=== PATIENT | female | born 2000 | race Caucasian/White ===

== ENCOUNTER 2023-01-28 01:13 | Emergency (ER) | payer OTHER ==
[~2023-01-28] VITALS: Ht 175.2 cm; Wt 74.8 kg
[2023-01-28] MEDS ORDERED: ONDANSETRON 4 MG/2 ML (SDV) Z0FRAN IVP ONE (01:45)
[2023-01-28] MEDS ORDERED: LACTATED RINGERS 1,000 ML IV ONE (01:45)
--- NOTE | 2023-01-28 01:47 | ED Abdominal Pain ---
General Chief Complaint: Abdominal/GI Problems Stated Complaint: ABD PAIN Nursing Triage Note: PT AMB TO RM 09 WITH CC OF RIGHT UPPER ABD PAIN, NAUSEA, VOMITTING X2. PT STATES THAT SHE HAD NORMAL BM TODAY. Source of Information: Patient History of Present Illness Date Seen by Provider: Jan 28, 2023 Time Seen by Provider: 01:25 Initial Comments PT ARRIVES VIA POV FROM HOME C/O RUQ PAIN SINCE 1999 TON. PAIN IS CONSTANT, NOTHING WORSENS OR IMPROVES PAIN AN HOUR AGO, SHE BEGAN HAVING NAUSEA AND VOMITED X 2. NAUSEA IS BETTER NOW SHE HAD A NORMAL BM TODAY NO URINARY SYMPTOMS NO FEVER SHE HAS HAD SIMILAR EPISODES OVER THE LAST COUPLE OF YEARS, BUT WERE "SMALL PAINS" AND WENT AWAY WITH GAS X SHE TOOK GAS X TONIGHT WITHOUT RELIEF SHE ATE PIZZA TONIGHT AT 1900. SHE HAS FELT FINE ALL DAY TODAY LMP 2 1/2 WEEKS AGO, PERIODS ALWAYS IRREGULAR. NO CONTROL NO CHRONIC MEDICAL PROBLEMS, DOES NOT TAKE ANY MEDICATIONS. NO PRIOR SURGERIES PCP: NONE--MOVED HERE A YEAR AGO FROM [place], BUT DID NOT HAVE A DR THERE EITHER. SHE STATES IT HAS BEEN A COUPLE OF YEARS SINCE SHE SAW A DR FOR ANYTHING Allergies and Home Medications Allergies Coded Allergies: latex (Verified Allergy, Unknown, 01/28/23) Patient Home Medication List Ketorolac Tromethamine (Ketorolac Tromethamine) 10 Mg Tablet, 10 MG PO Q6H Prescribed by: MEGHNA GRAY on 01/28/23 0546 Ondansetron (Ondansetron Odt) 8 Mg Tab.rapdis, 8 MG PO Q6H Prescribed by: MEGHNA GRAY on 01/28/23 0546 Pantoprazole Sodium (Protonix) 40 Mg Tablet.dr, 40 MG PO DAILY Prescribed by: MEGHNA GRAY on 01/28/23 0546 Review of Systems Review of Systems Constitutional: no symptoms reported Respiratory: No Symptoms Reported Cardiovascular: No Symptoms Reported Gastrointestinal: See HPI, Abdominal Pain; Denies Constipated, Denies Diarrhea; Nausea, Vomiting Genitourinary: No Symptoms Reported Musculoskeletal: no symptoms reported Skin: no symptoms reported Psychiatric/Neurological: No Symptoms Reported Endocrine: No Symptoms Reported Hematologic/Lymphatic: No Symptoms Reported Past Vluydji-Ilbmhm-Ofbnjc Hx Patient Social History Tobacco Use?: No Substance use?: No Alcohol Use?: No Past Medical History Surgeries: No Respiratory: No Cardiac: No Neurological: No : No Reproductive Disorders: Yes (IRREGULAR PERIODS) Female Reproductive Disorders: Menstrual Problems Genitourinary: No Gastrointestinal: No Musculoskeletal: No Endocrine: No HEENT: No Cancer: No Psychosocial: No Integumentary: No Blood Disorders: No Physical Exam Vital Signs Vital Signs - First Documented 01/28/23 01:25 Temp 37.0 Pulse 66 B/P (MAP) 146/90 (108) Pulse Ox 99 Capillary Refill : Height/Weight/BMI Height: '" Weight: lbs. oz. kg; 24.00 BMI Method: General Appearance: WD/WN, no apparent distress, other (DOES NOT APPEAR ILL OR TO BE IN ANY DISCOMFORT OR DISTRESS) HEENT: PERRL/EOMI; No scleral icterus (R), No scleral icterus (L) Neck: normal inspection Respiratory: normal breath sounds, no respiratory distress, no accessory muscle use Cardiovascular: regular rate, rhythm, no murmur Gastrointestinal: normal bowel sounds, soft, no organomegaly, no pulsatile mass; No distended, No guarding, No rebound; tenderness (EPIGASTRIC, RUQ AND RIGHT FLANK/CVA TENDERNESS); No hernia, No mass Back: no vertebral tenderness, CVA tenderness (R) 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, no motor/sensory deficits, alert, normal mood/affect, oriented x 3 Skin: normal color, warm/dry; No rash; tattoos/piercings (MULTIPLE TATTOOS) Progress/Results/Core Measures Results/Orders Lab Results Laboratory Tests Test 01/28/23 02:14 01/28/23 02:29 Range/Units White Blood Count 11.4 H 4.3-11.0 10^3/uL Red Blood Count 4.69 3.80-5.11 10^6/uL Hemoglobin 13.3 11.5-16.0 g/dL Hematocrit 41 35-52 % Mean Corpuscular Volume 88 80-99 fL Mean Corpuscular Hemoglobin 28 25-34 pg Mean Corpuscular Hemoglobin Concent 32 32-36 g/dL Red Cell Distribution Width 13.0 10.0-14.5 % Platelet Count 313 130-400 10^3/uL Mean Platelet Volume 10.0 9.0-12.2 fL Immature Granulocyte % (Auto) 0 % Neutrophils (%) (Auto) 73 42-75 % Lymphocytes (%) (Auto) 17 12-44 % Monocytes (%) (Auto) 7 0-12 % Eosinophils (%) (Auto) 1 0-10 % Basophils (%) (Auto) 1 0-10 % Neutrophils # (Auto) 8.4 H 1.8-7.8 10^3/uL Lymphocytes # (Auto) 2.0 1.0-4.0 10^3/uL Monocytes # (Auto) 0.8 0.0-1.0 10^3/uL Eosinophils # (Auto) 0.2 0.0-0.3 10^3/uL Basophils # (Auto) 0.1 0.0-0.1 10^3/uL Immature Granulocyte # (Auto) 0.0 0.0-0.1 10^3/uL Sodium Level 139 135-145 MMOL/L Potassium Level 4.0 3.6-5.0 MMOL/L Chloride Level 107 98-107 MMOL/L Carbon Dioxide Level 22 21-32 MMOL/L Anion Gap 10 5-14 MMOL/L Blood Urea Nitrogen 11 7-18 MG/DL Creatinine 0.85 0.60-1.30 MG/DL Estimat Glomerular Filtration Rate 99 BUN/Creatinine Ratio 13 Glucose Level 98 70-105 MG/DL Calcium Level 10.0 8.5-10.1 MG/DL Corrected Calcium 9.7 8.5-10.1 MG/DL Total Bilirubin 0.4 0.1-1.0 MG/DL Aspartate Amino Transf (AST/SGOT) 32 5-34 U/L Alanine Aminotransferase (ALT/SGPT) 66 H 0-55 U/L Alkaline Phosphatase 74 40-136 U/L Total Protein 7.9 6.4-8.2 GM/DL Albumin 4.4 3.2-4.5 GM/DL Amylase Level 30 25-125 U/L Lipase 8 8-78 U/L Urine Color YELLOW Urine Clarity CLEAR Urine pH 6.5 5-9 Urine Specific [place] 1.010 L 1.016-1.022 Urine Protein NEGATIVE NEGATIVE Urine Glucose (UA) NEGATIVE NEGATIVE Urine Ketones NEGATIVE NEGATIVE Urine Nitrite NEGATIVE NEGATIVE Urine Bilirubin NEGATIVE NEGATIVE Urine Urobilinogen 1.0 < = 1.0 MG/DL Urine Leukocyte Esterase NEGATIVE NEGATIVE Urine RBC (Auto) NEGATIVE NEGATIVE Urine RBC NONE /HPF Urine WBC NONE /HPF Urine Crystals NONE /LPF Urine Bacteria NEGATIVE /HPF Urine Casts NONE /LPF Urine Mucus NEGATIVE /LPF Urine Culture Indicated NO Urine Opiates Screen NEGATIVE NEGATIVE Urine Oxycodone Screen NEGATIVE NEGATIVE Urine Methadone Screen NEGATIVE NEGATIVE Urine Propoxyphene Screen NEGATIVE NEGATIVE Urine Barbiturates Screen NEGATIVE NEGATIVE Ur Tricyclic Antidepressants Screen NEGATIVE NEGATIVE Urine Phencyclidine Screen NEGATIVE NEGATIVE Urine Amphetamines Screen NEGATIVE NEGATIVE Urine Methamphetamines Screen NEGATIVE NEGATIVE Urine Benzodiazepines Screen NEGATIVE NEGATIVE Urine Cocaine Screen NEGATIVE NEGATIVE Urine Cannabinoids Screen NEGATIVE NEGATIVE My Orders Orders - MEGHNA GRAY DO Urine Bedside (01/28/23 01:28) Ua Culture If Indicated (01/28/23 01:28) Ed Iv/Invasive Line Start (01/28/23 01:39) Amylase (01/28/23 01:39) Cbc With Automated Diff (01/28/23 01:39) Comprehensive Metabolic Panel (01/28/23 01:39) Drug Screen Stat (Urine) (01/28/23 01:39) Lipase (01/28/23 01:39) Ed Iv/Invasive Line Start (01/28/23 01:39) Lactated Ringers (Lr 1000 Ml Iv Solution (01/28/23 01:45) Ondansetron Injection (Zofran Injectio (01/28/23 01:45) Ct Abd/Pelvis Wo(Kidney Stone) (01/28/23 02:31) Abdomen/Kub 1view (01/28/23 02:31) Medications Given in ED Current Medications Medications Dose Ordered Sig/Zi Route Start Time Stop Time Status Last Admin Dose Admin Lactated Ringer's 1,000 ml @ 0 mls/hr Q0M ONCE IV 01/28/23 01:45 01/28/23 01:46 DC 01/28/23 02:19 0 MLS/HR Ondansetron HCl 4 mg ONCE ONCE IVP 01/28/23 01:45 01/28/23 01:46 DC 01/28/23 02:19 4 MG Vital Signs/I&O 01/28/23 01:25 Temp 37.0 Pulse 66 B/P (MAP) 146/90 (108) Pulse Ox 99 Blood Pressure Mean: 108 Progress Progress Note : Progress Note VERY DIFFICULT IV ACCESS GIVEN: -IV FLUIDS -ZOFRAN Diagnostic Imaging Comments KUB--PENDING RADIOLOGIST REVIEW CT ABDOMEN/PELVIS--PER [facility] VIA FAX Reviewed: Reviewed by Me Departure Impression Primary Impression: Cholelithiasis Disposition: 01 HOME, SELF-CARE Condition: Improved Departure-Patient Inst. Decision time for Depature: 05:44 Referrals: JAVY CHRISTOPHER BRETT D DO NO,LOCAL PHYSICIAN (PCP) Primary Care Physician Patient Instructions: Gallstones (DC), Gallbladder Diet Add. Discharge Instructions: LOTS OF CLEAR LIQUIDS--WATER, BROTH, JELLO, GATORADE BRATS DIET--BANANAS, RICE, APPLESAUCE, TOAST, SALTINES FOLLOW UP WITH DR. CHRISTOPHER OR DR. LEE FOR FURTHER CARE--CALL TODAY TO SCHEDULE AN APPOINTMENT RETURN TO ER IF YOUR SYMPTOMS WORSEN All discharge instructions reviewed with patient and/or family. Voiced understanding. Scripts Ketorolac Tromethamine (Ketorolac Tromethamine) 10 Mg Tablet 10 MG PO Q6H for Pain, #15 TAB Prov: MEGHNA GRAY DO 01/28/23 Pantoprazole Sodium (Protonix) 40 Mg Tablet.dr 40 MG PO DAILY, #15 TAB Prov: MEGHNA GRAY DO 01/28/23 Ondansetron (Ondansetron Odt) 8 Mg Tab.rapdis 8 MG PO Q6H, #10 TAB Prov: MEGHNA GRAY DO 01/28/23 Work/School Note: Work Release Form Date Seen in the Emergency Department: Jan 28, 2023 Return to Work: Jan 29, 2023 MEGHNA GRAY DO Jan 28, 2023 01:47
[2023-01-28 02:29] LABS: BASOPHILS # (AUTO) 0.1 10^3/uL (0.0-0.1); BASOPHILS % (AUTO) 1 % (0-10); EOSINOPHILS # (AUTO) 0.2 10^3/uL (0.0-0.3); EOSINOPHILS % (AUTO) 1 % (0-10); HEMATOCRIT 41 % (35-52); HEMOGLOBIN 13.3 g/dL (11.5-16.0); LYMPHOCYTES % (AUTO) 17 % (12-44); MEAN CORPUSCULAR HEMOGLOBIN 28 pg (25-34); MEAN CORPUSCULAR HGB CONC 32 g/dL (32-36); MEAN CORPUSCULAR VOLUME 88 fL (80-99); MONOCYTES # (AUTO) 0.8 10^3/uL (0.0-1.0); MONOCYTES % (AUTO) 7 % (0-12); NEUTROPHILS # (AUTO) 8.4 10^3/uL (1.8-7.8); NEUTROPHILS % (AUTO) 73 % (42-75); PLATELET COUNT 313 10^3/uL (130-400); WHITE BLOOD COUNT 11.4 10^3/uL (4.3-11.0)
[2023-01-28 02:41] LABS: BILIRUBIN,URINE NEGATIVE (NEGATIVE); CLARITY,URINE CLEAR; COLOR,URINE YELLOW; GLUCOSE, URINE (UA) NEGATIVE (NEGATIVE); KETONES,URINE NEGATIVE (NEGATIVE); LEUKOCYTE ESTERASE ,URINE NEGATIVE (NEGATIVE); NITRITE,URINE NEGATIVE (NEGATIVE); PH,URINE 6.5 (5-9); PROTEIN,URINE NEGATIVE (NEGATIVE)
[2023-01-28 02:48] LABS: ALBUMIN 4.4 GM/DL (3.2-4.5)
[2023-01-28 02:50] LABS: TOTAL PROTEIN 7.9 GM/DL (6.4-8.2)
[2023-01-28 02:52] LABS: BILIRUBIN,TOTAL 0.4 MG/DL (0.1-1.0)
[2023-01-28 02:54] LABS: CREATININE SERUM 0.85 MG/DL (0.60-1.30)
[2023-01-28 03:03] LABS: AMPHETAMINE SCREEN, URINE NEGATIVE (NEGATIVE); BARBITURATE SCREEN URINE NEGATIVE (NEGATIVE); BENZODIAZEPINES SCREEN URINE NEGATIVE (NEGATIVE); CANNABINOID SCREEN, URINE NEGATIVE (NEGATIVE); COCAINE SCREEN URINE NEGATIVE (NEGATIVE); METHADONE STAT NEGATIVE (NEGATIVE); OPIATE SCREEN URINE NEGATIVE (NEGATIVE); OXYCODONE STAT NEGATIVE (NEGATIVE); PROPOXYPHENE STAT NEGATIVE (NEGATIVE); TRICYCLIC ANTIDEPRESSANTS SCRE NEGATIVE (NEGATIVE)
[2023-01-28 03:07] LABS: BACTERIA,URINE NEGATIVE /HPF
[2023-01-28] MEDS ORDERED: ONDA8TAB13 PO (05:46)
[2023-01-28] MEDS ORDERED: KETO10TA PO (05:46)
[2023-01-28] MEDS ORDERED: PANT40TA2 PO (05:46)
[2023-01-28 05:58] VITALS: BP 111/73
--- NOTE | 2023-01-28 06:06 | Diagnostic Imaging Report ---
PROCEDURE: CT urinary tract, rule out kidney stone. TECHNIQUE: Multiple contiguous axial images were obtained through the abdomen and pelvis without the use of intravenous contrast. Auto Exposure Controls were utilized during the CT exam to meet ALARA standards for radiation dose reduction. INDICATION: 22-year-old female presents with right flank pain. COMPARISONS: None FINDINGS: Lung bases are clear. Cardiac contour is normal. Liver shows uniform attenuation. Gallbladder shows several cholesterol stones. There is no wall thickening or pericholecystic fluid. Spleen and GE junction are normal. Stomach and duodenal sweep are unremarkable. Pancreas shows sharp margins. Adrenals are normal. Kidneys appear normal in size, position and contour. There is no hydronephrosis or hydroureter. Both ureters are seen intermittently through their course and appear unremarkable. There is no discrete renal or ureteral calculi. Few pelvic phleboliths are seen. Partially filled bladder is also unremarkable. Uterus and adnexa are grossly normal. Several small ovarian follicles are present. Nonopacified loops of small bowel are grossly unremarkable. Appendix is normal. Large bowel contains fecal material and gas up to the transverse colon. Descending colon is mostly decompressed. There is no free air, free fluid or adenopathy. Visualized vasculature shows normal caliber of aorta, iliac and femoral arteries with normal origin of the visceral arteries. IMPRESSION: 1. Cholelithiasis with multiple cholesterol stones but no secondary signs of acute cholecystitis. 2. No evidence of obstructive uropathy. 3. No evidence of appendicitis or other areas of peritoneal inflammation. Additional nonemergent findings as described above. Dictated by: Dictated on workstation # [id number]
--- NOTE | 2023-01-28 06:21 | Diagnostic Imaging Report ---
INDICATION: Abdominal pain COMPARISONS: CT abdomen and pelvis 01/28/2023. FINDINGS: KUB shows gas throughout the luminal viscera to the rectum. There is fecal material in the proximal colon up to the mid to distal transverse colon. There is no organomegaly or abnormal calcifications. The visualized bony abdomen/pelvis is unremarkable. IMPRESSION: Normal bowel gas pattern. There is some fecal material from the cecum to the mid transverse colon. Dictated by: Dictated on workstation # [id number]
== END 2023-01-28 05:58 | disposition home or self-care (01) ==
LOC: ER 01:16
DX: K80.20 Calculus of gallbladder without cholecystitis without obstruction (principal); Z91.040 Latex allergy status; Z28.310 Unvaccinated for COVID-19
CPT/HCPCS: 36415; 74018; 74176; 80053; 80306; 81000; 82150; 83690; 84703; 85025